=== PATIENT | male | born 1985 | race Caucasian/White ===

== ENCOUNTER 2024-12-18 00:42 | Emergency (ER) | payer SELFPAY ==
[2024-12-18] MEDS ORDERED: Ketorolac Tromethamine 30 MG (1 mL) VIAL ONE (01:16)
[2024-12-18] MEDS ORDERED: HYDROcodone/Acetaminophen 5/325 mg Tablet ONE (01:17)
[2024-12-18 01:23] LABS: #Basophils 0.06 10x3/uL (0.0-0.2); %Basophils 0.9 % (0.0-1.0); %Eosinophils 6.3 % (0.0-10.0); %Lymphocytes 25.6 % (21.0-51.0); %Neutrophils 55.8 % (42.0-75.0); Hematocrit 44.1 % (42.0-52.0); Hemoglobin 15.6 g/dL (14.0-18.0); Mean Corpuscular HGB CONC 35.4 g/dL (32.0-36.0); Mean Corpuscular Hemoglobin 30.4 pg (27.0-31.0); Platelet Count 251 10x3/uL (130-400); RBC Distribution Width 12.5 % (11.5-14.5); Red Blood Cell (RBC) Count 5.13 mill/uL (4.70-6.10)
[2024-12-18 01:40] LABS: ALT (SGPT) 81 U/L (8-55); AST (SGOT) 45 U/L (5-34); Albumin 3.9 g/dL (3.5-5.0); Alkaline Phosphatase 102 U/L (40-110); Anion Gap 15 mmol/L (10-20); BUN (Urea Nitrogen) 15 mg/dL (8.9-20.6); Bilirubin, Total 0.3 mg/dL (0.2-1.2); Calc. Creatinine Clearance 0 mL/min (70-130); Calcium 8.9 mg/dL (7.8-10.44); Carbon Dioxide 21 mmol/L (22-29); Chloride 107 mmol/L (98-107); Estimated GFR 119; Globulin 3.9 g/dL (2.4-3.5); Glucose 116 mg/dL (70-105); Potassium 3.4 mmol/L (3.5-5.1); Protein, Total 7.8 g/dL (6.0-8.3); Sodium 140 mmol/L (136-145)
[2024-12-18 01:43] LABS: Troponin I Less than 0.010 ng/mL (< 0.028)
== END 2024-12-18 02:05 | disposition home or self-care (01) ==
LOC: ERS 00:42
DX: R07.89 Other chest pain (principal); M79.18 Myalgia, other site; Z75.8 Other problems related to medical facilities and other health care
CPT/HCPCS: 71045; 80053; 84484; 85025; 93005; 96374; J1885